=== PATIENT | male | born 1985 | race Caucasian/White ===

== ENCOUNTER 2016-10-21 18:45 | Emergency (ER) | payer OTHER | END 2016-10-21 20:42 | disposition home or self-care (01) | LOC: ED 18:45 | DX: S01.03XA Puncture wound without foreign body of scalp, initial encounter (principal); S10.91XA Abrasion of unspecified part of neck, initial encounter; Y08.89XA Assault by other specified means, initial encounter | CPT/HCPCS: 70250; 70450; 99284 ==